=== PATIENT | female | born 1980 | race Caucasian/White ===

== ENCOUNTER 2016-10-23 20:08 | Emergency (ER) | payer OTHER ==
[~2016-10-23] VITALS: Ht 172.7 cm; Wt 99.8 kg
[~2016-10-23 20:08] MED LIST: ALPRAZOLAM ER1 MG PO; AMBIEN 5 MG TABL5 M1 PO; BENTYL20 MG PO; CLONAZEPAM 1 MG1 M1 PO; CYCLAFEM1 EAC1 PO; HYDROCODONE-AP1 EAC6 PO; LOXAPINE10 MG PO; PRILOSEC20 MG PO; TRAZODONE HCL100 MG PO; TRICOR145 MG PO; VENLAFAXINE HCL75 M2 PO; ZOLOFT50 MG PO
[2016-10-23 20:35] LABS: URINE BILIRUBIN NEGATIVE (Negative); URINE BLOOD 2+ (Negative); URINE COLOR YELLOW; URINE GLUCOSE-RANDOM* NEGATIVE (Negative); URINE KETONES NEGATIVE (Negative); URINE LEUKOCYTES-REFLEX NEGATIVE (Negative); URINE PROTEIN (DIPSTICK) NEGATIVE (Negative); URINE SPECIFIC GRAVITY 1.015 (1.003-1.035); URINE UROBILINOGEN 0.2 E.U./dl (0.2-1.0)
[2016-10-23 20:40] LABS: SQUAMOUS 0-3 Few /LPF (0-3); URINE WBC-REFLEX None Seen /HPF (0-5)
[2016-10-23 20:41] LABS: CASTS None Seen /LPF (None Seen); CRYSTALS None Seen /LPF (None Seen); URINE RBC 3-10 Few /HPF (0-2)
[2016-10-23 20:50] LABS: ABSOLUTE NEUTROPHILS 5.6 thou/uL (1.4-8.2); BASOPHILS 0.9 % (0.0-2.0); EOSINOPHILS 2.2 % (0.0-3.0); HEMATOCRIT 28.9 % (37.0-47.0); HEMOGLOBIN 9.9 gm/dL (12.0-15.0); LYMPHOCYTES 27.9 % (24.0-44.0); MCH 30.1 pg (26.0-34.0); MCHC 34.3 g/dL (28.0-37.0); MCV 87.7 fL (80.0-100.0); MONOCYTES 9.9 % (1.0-8.0); PLATELET COUNT 210 thou/uL (150-400); POLYS 59.1 % (36.0-66.0); RDW 13.7 % (10.5-14.5); WBC 9.4 thou/uL (4.0-11.0)
[2016-10-23 20:58] LABS: CALCIUM 8.2 mg/dL (8.5-10.1); CREATININE 0.9 mg/dL (0.6-1.0); POTASSIUM 3.6 mmol/L (3.5-5.1)
[2016-10-23 20:59] LABS: MANUAL DIFF NO
[2016-10-23 21:03] LABS: ALBUMIN 3.1 g/dL (3.4-5.0); TOTAL BILIRUBIN 0.2 mg/dL (<0.1-1.0); TOTAL PROTEIN 6.8 g/dL (6.4-8.2)
[2016-10-23 22:43] VITALS: BP 142/76
[2016-10-23] MEDS ORDERED: MOBIC15 MG PO (22:44)
[2016-10-23] MEDS ORDERED: SENOKOT-S1 TA1 PO (22:45)
[2016-10-23] MEDS ORDERED: NORCO 5-325 TA1 EACH PO (22:45)
== END 2016-10-23 23:03 | disposition home or self-care (01) ==
LOC: ER 20:08
PROVIDERS: Physician Assistant
DX: N83.201 Unspecified ovarian cyst, right side (principal); J45.909 Unspecified asthma, uncomplicated; K21.9 Gastro-esophageal reflux disease without esophagitis; G56.03 Carpal tunnel syndrome, bilateral upper limbs; Z90.89 Acquired absence of other organs; Z90.49 Acquired absence of other specified parts of digestive tract; Z88.8 Allergy status to other drugs, medicaments and biological substances

== ENCOUNTER 2017-07-08 14:20 | Emergency (ER) | payer OTHER ==
[~2017-07-08] VITALS: Ht 162.6 cm; Wt 86.2 kg
[~2017-07-08 14:20] MED LIST changes: +AMITRIPTYLINE H50 M3 PO; +CHLORPROMAZINE25 M1 IM; +CHOLESTYRAMINE R5 GM PO; +LIORESAL 10 MG10 MG PO; +MOBIC15 MG PO; +NEXIUM40 MG PO; +NORCO 5-325 TA1 EACH PO; +OXYCONTIN10 M1 PO; +RISPERDAL25 MG/2 ML IM; +SENOKOT-S1 TA1 PO
[2017-07-08] MEDS ORDERED: B-12 COMPL1000 MCG/1 IM (15:16)
[2017-07-08] MEDS ORDERED: IRON325 PO (15:17)
[2017-07-08] MEDS ORDERED: ONDANSETRON HCL4 M2 PO (15:19)
[2017-07-08 15:20] LABS: ABSOLUTE NEUTROPHILS 6.2 thou/uL (1.4-8.2); BASOPHILS 0.5 % (0.0-2.0); EOSINOPHILS 2.3 % (0.0-3.0); HEMATOCRIT 36.4 % (37.0-47.0); HEMOGLOBIN 12.7 gm/dL (12.0-15.0); LYMPHOCYTES 28.3 % (24.0-44.0); MCH 31.2 pg (26.0-34.0); MCHC 34.9 g/dL (28.0-37.0); MCV 89.3 fL (80.0-100.0); MONOCYTES 9.6 % (1.0-8.0); PLATELET COUNT 246 thou/uL (150-400); POLYS 59.3 % (36.0-66.0); RBC 4.07 mil/uL (4.20-5.00); RDW 13.9 % (10.5-14.5); WBC 10.5 thou/uL (4.0-11.0)
[2017-07-08] MEDS ORDERED: PHENERGAN 25 MG25 M1 PO (15:20)
[2017-07-08 15:21] LABS: MANUAL DIFF NO
[2017-07-08 15:24] LABS: CALCIUM 9.1 mg/dL (8.5-10.1); CREATININE 0.9 mg/dL (0.6-1.0); POTASSIUM 3.6 mmol/L (3.5-5.1)
[2017-07-08 17:02] VITALS: BP 127/81
== END 2017-07-08 17:05 | disposition home or self-care (01) ==
LOC: ER 14:20
PROVIDERS: Physician Assistant
DX: T18.8XXA Foreign body in other parts of alimentary tract, initial encounter (principal); J45.909 Unspecified asthma, uncomplicated; K21.9 Gastro-esophageal reflux disease without esophagitis; Z98.890 Other specified postprocedural states; Z88.8 Allergy status to other drugs, medicaments and biological substances; Z91.048 Other nonmedicinal substance allergy status; X58.XXXA Exposure to other specified factors, initial encounter; Y93.89 Activity, other specified; Y92.89 Other specified places as the place of occurrence of the external cause; Y99.8 Other external cause status